=== PATIENT | male | born 1985 | race Caucasian/White ===

== ENCOUNTER 2023-08-26 21:16 | Emergency (ER) | payer BC, SELFPAY ==
[2023-08-26 21:34] VITALS: BP 174/87; PULSE 94; RESP 20; TEMP 37.1; O2SAT 98; BMI 33.1
[2023-08-26 23:13] LABS: MANUAL DIFF FLAG NO
[2023-08-26 23:15] LABS: Basophils Absolute Auto 0.1 X10*3/uL (0.0-0.2); Basophils Percent Auto 1.2 % (0-2); Eosinophils Absolute Auto 0.7 X10*3/uL (0.0-0.4); Eosinophils Percent Auto 6.3 % (0-4); Hemoglobin 17.2 g/dl (14.0-18.0); Imm Gran Abs Auto 0.07 X10*3/uL (0.00-0.03); Imm Gran Pct Auto 0.6 % (0.0-0.4); Lymphocytes Absolute Auto 3.7 X10*3/uL (1.2-4.9); Mean Corpuscular HGB Conc 36.6 g/dl (31.0-36.0); Mean Corpuscular Hemoglobin 34.3 pg (27.0-33.0); Mean Corpuscular Volume 93.6 fL (80.0-98.0); Mean Platelet Volume 10.8 fL (9.4-12.4); Monocytes Absolute Auto 0.8 X10*3/uL (0.1-1.2); Monocytes Percent Auto 7.5 % (2-11); Neutrophils Absolute Auto 5.8 x10*3/uL (2.0-8.3); Neutrophils Percent Auto 51.4 % (45-73); Platelet Count 252 X10*3/uL (160-400); Red Blood Count 5.02 X10*6/uL (4.60-5.80); Red Cell Distribution Width 13.6 % (11.0-16.0); White Blood Count 11.3 X10*3/uL (4.8-10.8)
[2023-08-26 23:29] LABS: Alanine Aminotransferase 239 U/L (0-40); Albumin Level 4.2 g/dL (3.5-5.0); Alkaline Phosphatase 90 U/L (39-117); Anion Gap 17 (12-20); Aspartate Amino Transferase 117 U/L (5-37); Bilirubin Total 0.5 mg/dL (0.0-1.0); Blood Urea Nitrogen 8 mg/dL (9-16); Calcium 9.7 mg/dL (8.4-10.2); Carbon Dioxide 24 mmol/L (22-29); Chloride 104 mmol/L (96-108); Creatinine Clr Calc Pharmacy 145.6; Estimated Glomerular Filt Rate > 60; Glucose Random 118 mg/dL (60-115); Lipase 15 U/L (8-78); Potassium 4.4 mmol/L (3.3-5.1); Sodium 141 mmol/L (135-145); Total Protein 7.7 g/dL (6.5-8.0)
[2023-08-27 02:00] VITALS: BP 145/93; PULSE 88; RESP 18; TEMP 36.7; O2SAT 97
[2023-08-27 03:57] VITALS: BP 145/84; PULSE 83; RESP 18; TEMP 36.7; O2SAT 97
--- NOTE | 2023-08-27 03:58 | MHC.EDTECH ---
Hourly rounds and vitals completed,call chavira in reach
[2023-08-27 04:40] LABS: Appearance Urine Clear; Color Urine Dark Yellow; Glucose Urine UA Negative (Negative); Leukocyte Esterase Urine Negative (Negative); Nitrite Urine Negative (Negative); Specific Gravity - Urine 1.025 (1.005-1.025); Urine Blood Negative (Negative); Urine Ketones Negative (Negative); Urine Protein Trace mg/dL (Neg-Trace)
[2023-08-27 06:00] VITALS: BP 142/87; PULSE 77; RESP 18; TEMP 36.6; O2SAT 98
--- NOTE | 2023-08-27 06:03 | ED.ABDPAIN ---
HPI - Abdominal Pain General Chief Complaint: Abdominal Pain Stated Complaint: abd pain, thinks gallbladder Time Seen by Provider: 08/27/23 03:32 Source: patient Mode of arrival: ambulatory History of Present Illness HPI narrative: 38-year-old male who reports 2-3 weeks of intermittent right flank pain not associated with fever, chills, nausea, vomiting and denies any urinary symptoms. Patient does report diarrhea. Related Data Allergies Allergy/AdvReac Type Severity Reaction Status Date / Time No Known Allergies Allergy Verified 08/26/23 21:36 Review of Systems Review of Systems Pertinent positives and negatives as stated in HPI [facility] Past Medical History Source: nursing notes reviewed Social History Social History Alcohol intake: current Alcohol intake frequency: holidays/special occasions only Smoked in Last 30 Days: Yes Use of substances other than those prescribed or required for medical reasons: No Advance Directives: No Advance Directives Information Provided: Yes Do you have a plan to hurt others: No Plan Physical Exam ED Vital Signs: Vital Signs - 24 hr 08/26/23 21:34 08/27/23 02:00 08/27/23 03:57 Temperature 98.8 F 98.0 F 98.1 F Pulse Rate 94 88 83 Respiratory Rate 20 18 18 Blood Pressure 174/87 H 145/93 H 145/84 H Pulse Oximetry 98 97 97 Oxygen Delivery Method Room Air Room Air Room Air 08/27/23 06:00 Temperature 97.8 F Pulse Rate 77 Respiratory Rate 18 Blood Pressure 142/87 H Pulse Oximetry 98 Oxygen Delivery Method Room Air BMI result Body Mass Index 33.1 VITAL SIGNS: Reviewed. GENERAL: Well developed, well nourished, in no acute distress. HEAD: Normocephalic/atraumatic EYES: PERRLA, EOMI LUNGS: Normal breath sounds. No adventitious sounds or accessory muscle use. SpO2<98> CARDIOVASCULAR: Regular rate and rhythm without noted murmurs ABDOMEN: Soft, non-tender, non-distended with bowel sounds. MUSCULOSKELETAL: No tenderness, deformities, or effusions noted on gross inspection. EXTREMITIES: No cyanosis, clubbing or edema. SKIN: Inspection of the skin reveals no rashes NEUROLOGIC: Alert and oriented x 4. Strength and sensation to light touch were grossly intact x 4. Medical Decision Making Medical Decision Making MDM Narrative: 38-year-old male with history and clinical presentation, DDX: Suspect musculoskeletal pain. No clinical suspicion for acute appendicitis/obstruction, possible gastroenteritis versus less likely renal colic low clinical suspicion for UTI. Review of all investigations demonstrates a noninfectious leukocytosis without anemia or thrombocytopenia. Chemistry indices negative for SHEYLA or electrolyte derangements but patient has noted elevated transaminases. Urinalysis negative for UTI or hematuria. My interpretation is patient likely has a musculoskeletal pain with suspected gastroenteritis. He declines combination analgesics and wishes to be discharged. Differential Diagnosis Differential Diagnoses: The differential diagnosis associated with the presentation includes Please see the discussion above Admission/Observation Consideration of admission/observation: Escalation of care including admission/observation considered Please see the discussion above Lab Data [facility] Lab Attestation statement: I reviewed the patient's lab results. Please see the discussion above 08/26/23 23:09 08/26/23 23:09 Labs: Lab Results 08/26/23 08/27/23 Range/Units 23:09 04:33 WBC 11.3 H (4.8-10.8) X10*3/uL RBC 5.02 (4.60-5.80) X10*6/uL Hgb 17.2 (14.0-18.0) g/dl Hct 47.0 (42.0-52.0) % MCV 93.6 (80.0-98.0) fL MCH 34.3 H (27.0-33.0) pg MCHC 36.6 H (31.0-36.0) g/dl RDW 13.6 (11.0-16.0) % Plt Count 252 (160-400) X10*3/uL MPV 10.8 (9.4-12.4) fL Immature Gran % (Auto) 0.6 H (0.0-0.4) % Neut % (Auto) 51.4 (45-73) % Lymph % (Auto) 33.0 (20-40) % [place] % (Auto) 7.5 (2-11) % Eos % (Auto) 6.3 H (0-4) % Baso % (Auto) 1.2 (0-2) % Lymph # (Auto) 3.7 (1.2-4.9) X10*3/uL [place] # (Auto) 0.8 (0.1-1.2) X10*3/uL Eos # (Auto) 0.7 H (0.0-0.4) X10*3/uL Baso # (Auto) 0.1 (0.0-0.2) X10*3/uL Abs Immat Gran (auto) 0.07 H (0.00-0.03) X10*3/uL Absolute Neuts (auto) 5.8 (2.0-8.3) x10*3/uL Absolute Nucleated RBC 0.000 (0.0-0.012) X10*3/uL Nucleated RBC % (auto) 0.0 (0.0-0.2) /100WBC Sodium 141 (135-145) mmol/L Potassium 4.4 (3.3-5.1) mmol/L Chloride 104 (96-108) mmol/L Carbon Dioxide 24 (22-29) mmol/L Anion Gap 17 (12-20) BUN 8 L (9-16) mg/dL Creatinine 0.97 (0.5-1.4) mg/dL Estim Creat Clear Calc 145.6 Estimated GFR > 60 Random Glucose 118 H (60-115) mg/dL Calcium 9.7 (8.4-10.2) mg/dL Total Bilirubin 0.5 (0.0-1.0) mg/dL AST 117 H (5-37) U/L ALT 239 H (0-40) U/L Alkaline Phosphatase 90 (39-117) U/L Total Protein 7.7 (6.5-8.0) g/dL Albumin 4.2 (3.5-5.0) g/dL Lipase 15 (8-78) U/L Urine Color Dark Yellow Urine Appearance Clear Urine pH 6.0 (5.0-9.0) Ur Specific [place] 1.025 (1.005-1.025) Urine Protein Trace (Neg-Trace) mg/dL Urine Glucose (UA) Negative (Negative) mg/dL Urine Ketones Negative (Negative) mg/dL Urine Blood Negative (Negative) Urine Nitrite Negative (Negative) Ur Leukocyte Esterase Negative (Negative) Medications Administered Discontinued Medications Generic Name Dose Route Start Last Admin Trade Name Freq PRN Reason Stop Dose Admin Acetaminophen 975 mg 08/27/23 05:44 08/27/23 06:36 Acetaminophen 325 Mg Tablet PO 08/27/23 05:45 Not Given ONCE ONE Ibuprofen 400 mg 08/27/23 05:44 08/27/23 06:36 Ibuprofen 400 Mg Tablet PO 08/27/23 05:45 Not Given ONCE ONE Discharge Plan Discharge Clinical Impression: Gastroenteritis, Musculoskeletal pain Patient Disposition: Home, Self-Care Instructions: Musculoskeletal Pain (ED), Gastroenteritis (ED) Additional Instructions: Follow-up with your primary care doctor in the next 1-2 days. Return to the ER for any worsening symptoms. Print Language: Divehi
--- NOTE | 2023-08-27 06:05 | MHC.EDTECH ---
Hourly rounds and vitals completed,patient is resting at this time,call chavira in reach
--- NOTE | 2023-08-27 06:36 | PC.NURSE ---
Pt refused tylenol and ibuprofen, reporting he has taken it before and it doesn't help. Pt would like his discharge paperwork. aware.
[2023-08-27 07:02] VITALS: BP 143/95; PULSE 77; RESP 16; TEMP 36.4; O2SAT 96
== END 2023-08-27 07:03 | disposition home or self-care (01) ==
PROVIDERS: Emergency Provider Student in an Organized Health Care Education/Training Program
DX: K52.9 Noninfective gastroenteritis and colitis, unspecified (principal); M79.10 Myalgia, unspecified site; Z79.899 Other long term (current) drug therapy
CPT/HCPCS: 36415; 80053; 81003; 83690; 85025; 99283; 99284